=== PATIENT | female | born 1975 | race Caucasian/White ===

== ENCOUNTER 2022-05-27 08:07 | Outpatient (CLI) | payer OTHER, SELFPAY ==
--- NOTE | ~2022-05-27 | US_ITS ---
US breast RT complete DATE: 05/27/2022 09:50 INDICATION: Right breast pain TECHNIQUE: High-resolution ultrasound imaging and color flow imaging of the complete right breast inc luding all 4 quadrants and subareolar area COMPARISON: 03/26/2022 right diagnostic mammogram 11/27/2021 ultrasound-guided right breast biopsy at 5:00 910 cm from nipple 09/27/2022 post biopsy right diagnostic mammogram 10/14/2021 diagnostic right mammogram 09/16/2021 bilateral screening mammogram 05/08/2020 limited right breast ultrasound at 1:00 19 cm from nipple 05/08/2020 bilateral mammogram FINDINGS: 11:00 7 cm from nipple: Oval parallel comma-shaped 4.6 x 5 x 6.2 mm hypoechoic lesion without quality internship al vascularity, with through transmission and posterior enhancement. The sonographic features suggest benign process, either benign solid lesion or complicated cyst. Subareolar area: 2.6 x 2.3 mm cyst No suspicious mass or shadowing of the right breast is detected. IMPRESSION: BI-RADS Category 3: Probably benign finding Recommendation: 6 month targeted right breast ultrasound follow-up at 11:00 7 cm from nipple Reviewed, dictated and finalized at [facility]. Reviewed, dictated and finalized at [facility]. IMPRESSION: BI-RADS Category 3: Probably benign finding Recommendation: 6 month targeted right breast ultrasound follow-up at 11:00 7 c m from nipple
== END 2022-05-27 08:08 ==
PROVIDERS: PCP Internal Medicine; Visit Provider Internal Medicine
DX: N64.4 Mastodynia (principal); R92.8 Other abnormal and inconclusive findings on diagnostic imaging of breast
CPT/HCPCS: 76641